=== PATIENT | female | born 1980 | race Caucasian/White ===

== ENCOUNTER 2024-07-10 17:18 | Inpatient (IN) | payer MEDICAID ==
[~2024-07-10] VITALS: Ht 160 cm; Wt 133.7 kg
--- NOTE | 2024-07-10 17:55 | ED.PDOC ---
GI ASSESSMENT HPI Comments 43 y.o female with PMH of HTN, presents to the ED for a chief complaint of right upper quadrant pain associated with nausea that started 6 days ago. Patient reports pain is constant, non radiating and rating a 7/10 on the pain scale. Patient denies any vomiting, diarrhea, fever, chills, or urinary symptoms. Chief Complaint: Abdominal Pain Time Seen by MD: 17:30 Reviewed Notes: Nurses Notes, Medications, Allergies Allergies: Coded Allergies: No Known Drug Allergy (Verified Allergy, Unknown, 07/10/24) Information Source: Patient Mode of Arrival: Ambulatory Timing: Days (6) Duration: Since onset Quality: Sharp Vomitus: None Stool: Normal Severity: Moderate Recent: None Recent Hx of: None Pain Location: RUQ Modifying Factors: Nothing Associated sign and symptoms: Nausea, Abdominal Pain Past Medical History PAST MEDICAL HISTORY: HTN Surgical History: Tubal Ligation Surgical History (Other): left hand DISTRIBUTION LEAD History: No Pertinent DISTRIBUTION LEAD History Family History Family History: Reviewed,noncontributory to illness Social History Smoker: Non-Smoker Alcohol: Occasionally Drugs: Marijuana Constitutional: denies: chills, diaphoresis, fatigue, fever, malaise, sweats, weakness, others EENTM: denies: blurred vision, double vision, ear bleeding, ear discharge, ear drainage, ear pain, ear ringing, eye pain, eye redness, hearing loss, mouth pain, mouth swelling, nasal discharge, nose bleeding, nose congestion, nose pain, photophobia, tearing, throat pain, throat swelling, voice changes, others Respiratory: denies: cough, hemoptysis, orthopnea, SOB at rest, shortness of breath, SOB with excertion, stridor, wheezing, others Cardiovascular: denies: chest pain, dizzy spells, diaphoresis, Dyspnea on exertion, edema, irregular heart beat, left arm pain, lightheadedness, palpitations, PND, syncope, others Gastrointestinal: reports: abdominal pain, nausea; denies: abdomen distended, blood streaked bowels, constipated, diarrhea, dysphagia, difficulty swallowing, hematemesis, melena, poor appetite, poor fluid intake, rectal bleeding, rectal pain, vomiting, others Genitourinary: denies: abnormal vagina bleeding, burning, dyspareunia, dysuria, flank pain, frequency, hematuria, incontinence, pain, , vagina discharge, urgency, others Neurological: denies: dizziness, fainting, headache, left sided numbness, left sided weakness, numbness, paresthesia, pre-existing deficit, right sided numbness, right sided weakness, seizure, speech problems, tingling, tremors, weakness, others Musculoskeletal: denies: back pain, gout, joint pain, joint swelling, muscle pain, muscle stiffness, neck pain, others Integumetry: denies: bruises, change in color, change in hair/nails, dryness, laceration, lesions, lumps, rash, wounds, others Allergic/Immunocompromised: denies: Difficulty Healing, Frequent Infections, Hives, Itching, others Hematologic/Lymphatic: denies: anemia, blood clots, easy bleeding, easy bruising, swollen glands, others Endocrine: denies: excessive hunger, excessive sweating, excessive thirst, excessive urination, flushing, intolerance to cold, intolerance to heat, unexplained weight gain, unexplained weight loss, others Psychiatric: denies: anxiety, bipolar disorder, depression, hopeless, panic disorder, schizophrenia, sleepless, suicidal, others All Other Systems: Reviewed and Negative Physical Exam General Appearance: Moderate Distress HEENT: Normal ENT Inspection, Pharynx Normal, TMs Normal Neck: Full Range of Motion, Non-Tender, Normal, Normal Inspection Respiratory: Chest Non-Tender, Lungs Clear, No Accessory Muscle Use, No Respiratory Distress, Normal Breath Sounds Cardiovascular: No Edema, No JVD, No Murmur, No Gallop, Normal Peripheral Pulses, Regular Rate/Rhythm Breast Exam: Deferred Gastrointestinal: No Organomegaly, No Pulsatile Mass, Normal Bowel Sounds, RUQ, Soft, Tenderness Genitalia: Deferred Pelvic: Deferred Rectal: Deferred Extremities: No calf tenderness, Normal capillary refill, Normal inspection, Normal range of motion, Non-tender, No pedal edema Musculoskeletal : Apperance: Normal 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 Was a procedure done?: No GI differential Dx Differential Diagnosis: Esophagitis, Gastroenteritis, Dehydration, Electrolyte Imbalance, , Bacterial, Viral X-Ray, Labs, Meds, VS Vital Signs Date Time Temp Pulse Resp B/P (MAP) Pulse Ox O2 Delivery O2 Flow Rate FiO2 07/10/24 19:54 100 18 148/94 (112) 96 07/10/24 19:53 100 18 166/91 07/10/24 19:03 97 18 134/89 07/10/24 18:47 98.7 97 18 134/89 (104) 97 98.7 07/10/24 18:47 97 18 97 Room Air 07/10/24 18:00 134/89 07/10/24 17:34 95.0 20 20 164/100 (121) 100 Lab Test 07/10/24 21:15 07/10/24 18:46 07/10/24 18:29 Range/Units Lactic Acid Level Pending Urine Color Yellow Yellow Urine Clarity Clear Clear Urine pH 6.0 5.0-9.0 Urine Specific [place] 1.026 1.001-1.035 Urine Protein Trace H Negative Urine Ketones Negative Negative Urine Blood Negative Negative /uL Urine Nitrite Negative Negative Urine Bilirubin Negative Negative Urine Urobilinogen 2 H Negative mg/dL Urine Leukocyte Esterase Negative Negative /uL Urine RBC 2 0 - 4 /hpf Urine WBC 1 0 - 5 /hpf Urine Squamous Epithelial Cells Few <5 /hpf Urine Bacteria None seen None Seen /hpf Urine Mucus Few None Seen Urine Glucose Normal Normal mg/dL Urine Opiates Screen Pos NEGATIVE Urine Fentanyl Screen Neg NEGATIVE Urine Barbiturates Screen Neg NEGATIVE Urine Phencyclidine Screen Neg NEGATIVE Urine Amphetamines Screen Neg NEGATIVE Urine Benzodiazepines Screen Neg NEGATIVE Urine Cocaine Screen Neg NEGATIVE Urine Cannabinoids Screen Pos NEGATIVE White Blood Count 11.9 H 4.4-10.8 10^3/uL Red Blood Count 5.09 4.0-5.20 10^6/uL Hemoglobin 14.4 12.2-16.2 g/dL Hematocrit 43.7 36.0-46.0 % Mean Corpuscular Volume 85.9 80.0-100.0 fL Mean Corpuscular Hemoglobin 28.2 28.0-32.0 pg Mean Corpuscular Hemoglobin Concent 32.9 32.0-36.0 g/dL Red Cell Distribution Width 15.9 H 11.8-14.3 % Platelet Count 463 H 140-450 10^3/uL Mean Platelet Volume 7.6 6.9-10.8 fL Neutrophils (%) (Auto) 64.1 37.0-80.0 % Lymphocytes (%) (Auto) 26.3 10.0-50.0 % Monocytes (%) (Auto) 4.8 0.0-12.0 % Eosinophils (%) (Auto) 4.0 0.0-7.0 % Basophils (%) (Auto) 0.8 0.0-2.0 % Neutrophils # (Auto) 7.6 1.6-8.6 10 ^3/uL Lymphocytes # (Auto) 3.1 0.4-5.4 10 ^3/uL Monocytes # (Auto) 0.6 0-1.3 10 ^3/uL Eosinophils # (Auto) 0.5 0-0.8 10 ^3/uL Basophils # (Auto) 0.1 0-0.2 10 ^3/uL Nucleated Red Blood Cells 0.1 % Sodium Level 141 136-145 mmol/L Potassium Level 4.5 3.5-5.1 mmol/L Chloride Level 107 98-107 mmol/L Carbon Dioxide Level 20-31 mmol/L Anion Gap 7 5-15 Blood Urea Nitrogen 8 L 9-23 mg/dL Creatinine 0.87 0.550-1.02 mg/dL Glomerular Filtration Rate Calc 84 >90 mL/min BUN/Creatinine Ratio 9.2 L 10.0-20.0 Serum Glucose 89 74-106 mg/dL Calcium Level 10.1 8.7-10.4 mg/dL Total Bilirubin 0.5 0.2-1.0 mg/dL Aspartate Amino Transferase (AST) 15 13-40 U/L Alanine Aminotransferase (ALT) 11 7-40 U/L Alkaline Phosphatase 80 46-116 U/L Total Protein 7.8 5.7-8.2 g/dL Albumin 5.0 H 3.2-4.8 g/dL Lipase 35 12-53 U/L Beta HCG, Quantitative 0.3 L 1.5-4.2 mIU/mL Current Medications Medications (Trade) Dose Ordered Sig/Rosaura Route Start Time Stop Time Status Last Admin Ondansetron HCl (Zofran) 4 mg ONCE ONCE IV 07/10/24 17:45 07/10/24 17:46 DC 07/10/24 19:03 Morphine Sulfate 4 mg ONCE ONCE IV 07/10/24 17:45 07/10/24 17:46 DC 07/10/24 19:03 Sodium Chloride 500 ml @ 500 mls/hr Q1H ONCE IVB 07/10/24 17:45 07/10/24 18:44 DC 07/10/24 18:59 CT scan of the abdomen and pelvis shows no sign of any significant abnormalities except for some liver inflammation The ultrasound of the gallbladder is negative The patient has an elevated white blood cell count of 11.9 The rest of the CBC and chemistry panel are within normal limits The patient's pain is persistent so after the morphine and Zofran the patient was now being given Dilaudid. The the urine tox is positive for marijuana The urine test is negative At this time, we did recommend admission for the patient We spoke with Lacy who is the hospitalist on-call and the patient is to be admitted The patient will be dispositioned by her at this time Images Reviewed?: Images reviewed and evaluated by me Time of 1ST Reevaluation: 17:56 Reevaluation 1ST: Unchanged Patient Education/Counseling: Diagnosis, Treatment, Prognosis Family Education/Counseling: No Family Present Departure 1 Departure Time of Disposition: 21:33 Impression: Primary Impression: Intractable abdominal pain Disposition: ADMITTED INPATIENT Admit to: Med Surg Condition: Fair Critical Care Note Critical Care Time?: No Stability Stability form required: Yes Unstable for transfer: ED Physician Assesment (Clinical assesment) Heart Score Heart Score: Heart Score Response (Comments) Value History N/A 0 EKG N/A 0 Age N/A 0 Risk Factors N/A 0 Troponin N/A 0 Total 0 I personally scribed for TI WRIGHT MD ([employer]) on 07/10/24 at 17:55. Electronically submitted by Dianne Moreno ([employer]). I personally scribed for TI WRIGHT MD ([employer]) on 07/10/24 at 17:56. Electronically submitted by Dianne Moreno ([employer]). TI WRIGHT MD Jul 10, 2024 17:55
[2024-07-10] MEDS: cloNIDine HCL 0.1 MG TAB PO ONE (18:00)
--- NOTE | 2024-07-10 18:29 | DVH ---
Procedure: US GALLBLADDER Study Date and Requested Time: 07/10/2024 05:42 PM History: pain Comparison: None Technique: Multiple high resolution bunch-scale images obtained of the right upper quadrant of the abd omen with color Doppler for evaluation of blood flow and vascularity as indicated. Findings: Liver normal in size, measuring 16.3 cm in length, with increased echogenicity and normal contours. N o evidence of focal hepatic lesions, intrahepatic or extrahepatic ductal dilatation. Common bile duct measures 0.4 cm in diameter. Gallbladder unremarkable with no evidence of abnormal wall thickening, gallstones, biliary sludge, or pericholecystic fluid. Negative sonographic Quintana's sign. Pancreas only partially visualized due to overlying bowel gas . Right kidney measures 10.6 cm in length, with normal contours, echotexture, and cortical thickness. N o evidence of hydronephrosis, calculi, cystic or solid renal lesions. Partially visualized inferior vena cava unremarkable. Impression: Increased hepatic echogenicity which may be from hepatic disease/hepatic steatosis..
[2024-07-10 18:52] LABS: Basophils # (auto) 0.1 10 ^3/uL (0-0.2); Basophils % (auto) 0.8 % (0.0-2.0); Eosinophils # (auto) 0.5 10 ^3/uL (0-0.8); Hematocrit 43.7 % (36.0-46.0); Hemoglobin 14.4 g/dL (12.2-16.2); Lymphocytes # (auto) 3.1 10 ^3/uL (0.4-5.4); Lymphocytes % (auto) 26.3 % (10.0-50.0); Mean Corpuscular Hemoglobin 28.2 pg (28.0-32.0); Mean Corpuscular Hgb Conc. 32.9 g/dL (32.0-36.0); Mean Corpuscular Volume 85.9 fL (80.0-100.0); Monocytes # (auto) 0.6 10 ^3/uL (0-1.3); Monocytes % (auto) 4.8 % (0.0-12.0); Neutrophils # (auto) 7.6 10 ^3/uL (1.6-8.6); Neutrophils % (auto) 64.1 % (37.0-80.0); Nucleated Red Blood Cells % 0.1 %; Platelet Count (auto) 463 10^3/uL (140-450); Red Blood Cells 5.09 10^6/uL (4.0-5.20); Red Cell Distribution Width 15.9 % (11.8-14.3); White Blood Cell 11.9 10^3/uL (4.4-10.8)
[2024-07-10] MEDS: SODIUM CHLORIDE 0.9% 500 ML IVB ONE (18:59)
[2024-07-10] MEDS: MORPHINE SULFATE 4 MG/ML SYR/VIAL IV ONE (19:03)
[2024-07-10] MEDS: ONDANSETRON HCL 4 MG/2 ML VIAL IV ONE ×2 (19:03→21:31)
[2024-07-10 19:07] LABS: Alanine Aminotransferase 11 U/L (7-40); Alkaline Phosphatase 80 U/L (46-116); Aspartate Aminotransferase 15 U/L (13-40); BUN/Creatinine Ratio 9.2 (10.0-20.0); Blood Urea Nitrogen 8 mg/dL (9-23); Calcium 10.1 mg/dL (8.7-10.4); Chloride 107 mmol/L (98-107); Glucose 89 mg/dL (74-106); Lipase 35 U/L (12-53); Potassium 4.5 mmol/L (3.5-5.1); Sodium 141 mmol/L (136-145)
[2024-07-10 19:08] LABS: Bilirubin, Total 0.5 mg/dL (0.2-1.0); Total Protein 7.8 g/dL (5.7-8.2)
[2024-07-10 19:14] LABS: Urine Bacteria None Seen /hpf (None Seen)
[2024-07-10 19:22] LABS: Anion Gap 7 (5-15)
[2024-07-10 19:52] LABS: Urine Blood Negative /uL (Negative); Urine Clarity Clear (Clear); Urine Color Yellow (Yellow); Urine Mucus FEW (None Seen); Urine Protein, UAD TRACE (Negative); Urine Specific Gravity 1.026 (1.001-1.035); Urine Urobilinogen 2 mg/dL (Negative); Urine WBC 1 /hpf (0 - 5)
--- NOTE | 2024-07-10 20:06 | DVH ---
CT CT AB PEL WO CON-NO ORAL OR IV INDICATION: : 43 old Female pain EXAM DATE: 07/10/2024 07:33 PM COMPARISON: None RADIATION DOSE: CTDIvol: 26 mGy, DLP: 1350 mGy*cm PROCEDURE: Helical CT images were obtained of the abdomen and pelvis without IV contrast Sagittal an d coronal reconstructions are provided. ORAL CONTRAST: None. ADDITIONAL IMAGES / REFORMATS: None All CT scans at this medical facility are performed using dose modulation techniques as appropriate t o a performed exam including the following: Automated exposure control was utilized; adjustment of th e MA and/or KV according to patient size; and use of iterative reconstruction technique. FINDINGS: LUNG BASE: Normal. LIVER: Mildly low in attenuation. GALLBLADDER AND BILIARY TREE: No calcified gallstones. Normal caliber wall. No intra- or extrahepatic biliary ductal dilation. PANCREAS: Normal. SPLEEN: Normal. BOWEL: Mild colonic diverticulosis. Normal appendix. ADRENALS: Normal. KIDNEYS AND URETER: Punctate nonobstructive left kidney stone. BLADDER: Normal. REPRODUCTIVE ORGANS: 2.4 cm right ovarian cyst. LYMPH NODES:No lymphadenopathy. PERITONEUM: No ascites or free air. No other fluid collection. VESSELS: Scattered atherosclerotic calcifications are noted. RETROPERITONEUM: Normal. ABDOMINAL WALL: Normal. BONES: Scattered osseous degenerative changes are noted. Mild anterolisthesis of L5-S2 with bilateral pars defects. IMPRESSION: No acute intraabdominal abnormality. Mild colonic diverticulosis. Normal appendix. Punctate nonobstructive left kidney stone. Mild anterolisthesis of L5-S2 with bilateral pars defects. Mild hepatic steatosis.
[2024-07-10 20:10] VITALS: PULSE 94; RESP 15; O2SAT 99
[2024-07-10 21:22] LABS: Amphetamine Screen, Urine Neg (NEGATIVE); Benzodiazephine Screen, Urine Neg (NEGATIVE)
[2024-07-10 21:23] LABS: Barbiturate Scree,Urine Neg (NEGATIVE); Cannabinoid Screen, Urine Pos (NEGATIVE); Cocaine Screen, Urine Neg (NEGATIVE); Opiate Scree,Urine Pos (NEGATIVE); Phencyclidine Screen, Urine Neg (NEGATIVE)
[2024-07-10] MEDS: HYDROmorphone HCL 2 MG/ML VL/or syr IV ONE (21:31)
[2024-07-10] MEDS ORDERED: ACETAMINOPHEN 325 MG TAB PO PRN (21:45)
[2024-07-11] VITALS (8 sets, daily range): BP systolic 114–159; BP diastolic 64–97; PULSE 81–96; RESP 18–20; TEMP 97.8–98.3; O2SAT 95–100
--- NOTE | 2024-07-11 00:20 | DVHHP2 ---
Admitting Diagnosis: Intractable Abdominal pain History of Present Illness History Source: Patient Exam Limitations: No limitations HPI Mrs. Lizbeth Dickinson is a 43 y.o female with a history of hypertension, and chronic back pain patient presents with a chief complaint of right upper quadrant pain associated with nausea that started 6 days ago. Patient denies chest pain, fevers, chills, diarrhea, constipation, dysuria, hematuria. Home Meds Reported Medications Amitriptyline HCl (Amitriptyline Hydrochlori) 50 Mg Tab, 1 TAB PO 07/11/24 Tizanidine Hydrochloride (Tizanidine Hcl) 4 Mg Tab, 1 TAB PO Q8H 07/11/24 Atenolol (Atenolol) 50 Mg Tab, 1 TAB PO DAILY 07/11/24 Hydrocodone-Acetaminophen (Hydrocodone/Acetaminophen 7.5-325 mg) 1 Tab Tab 07/11/24 Gabapentin (Gabapentin) 400 Mg Cap, PO 07/11/24 Past Medical History Cardiac: HTN Pulmonary: No pertinent Hx Central Nervous System: No pertinent Hx GI: No pertinent Hx Hemotology/Oncology: No pertinent Hx Hepatobiliary: No pertinent Hx Psychiatric: No pertinent Hx Musculoskeletal: No pertinent Hx Rheumotologic: No pertinent Hx Infectious Disease: No peritnent Hx ENT: No pertinent Hx Renal/: No pertinent Hx Endocrine: No pertinent Hx Dermatology: No pertinent Hx Smoker: No Hx (Negative) Alocohol: None Drugs: None Lives with: With family Domestic Violence: Neg Review of Systems Constitutional: No symptom reported Ears, Nose, & Throat: No symptom reported Eyes: No symptom reported Pulmonary/Respiratory: No symptom reported Cardiovascular: No symptom reported Gastrointestinal: Abdominal Pain (right upper quadrant) Genitourinary: No symptom reported Musculoskeletal: No symptom reported Skin: No symptom reported Psychiatric: No symptom reported Endocrine: No symptom reported Hemotologic/Lymphatic: No symptom reported H&P Exam Vital Signs Vital Signs Date Time Temp Pulse Resp B/P (MAP) Pulse Ox O2 Delivery O2 Flow Rate FiO2 07/10/24 23:00 96 12 155/93 (113) 99 07/10/24 20:10 Room Air* 0 21 07/10/24 18:47 98.7 98.7 General Appeara: Well developed, Well nourished, Normal Appearance Head Exam: Normal inspection Neck Exam: Normal inspection, Non-tender, Normal alignment Eye Exam: bilateral eye Normal inspection, bilateral eye PERRL, bilateral eye EOMI Ear Exam: bilateral ear Auricle normal Nasal Exam: Normal inspection Mouth: Normal Inspection Pulmonary/Respiratory: Normal inspection, Normal breath sounds, Chest non- tender, Lungs clear Cardiovascular/Chest: Normal inspection, Regular rate, Normal Rhythm Peripheral Pulses: 2+ dorsalis pedis (R), 2+ dorsalis pedis (L), 2+ Radial (R), 2+ Radial (L) Abdominal Exam: Normal bowel sounds, Soft, No tenderness Abdominal Pain Onset Location: RUQ Rectal Exam: Deferred 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 hearing, Normal speech, PERRL Neuro/Mental St: Alert, Oriented Appearance: Appropriate appearance, Appropriate insight Eye contact/ Speech: Cooperative, Good eye contact, Normal speech Thoughts/Psych: Normal thought pattern Skin Exam: Normal inspection, Normal color, Warm/dry Labs/Xrays Labs Test 07/10/24 21:15 07/10/24 18:46 07/10/24 18:29 Range/Units Lactic Acid Level 1.2 0.4-2.0 mmol/L Urine Color Yellow Yellow Urine Clarity Clear Clear Urine pH 6.0 5.0-9.0 Urine Specific [place] 1.026 1.001-1.035 Urine Protein Trace H Negative Urine Ketones Negative Negative Urine Blood Negative Negative /uL Urine Nitrite Negative Negative Urine Bilirubin Negative Negative Urine Urobilinogen 2 H Negative mg/dL Urine Leukocyte Esterase Negative Negative /uL Urine RBC 2 0 - 4 /hpf Urine WBC 1 0 - 5 /hpf Urine Squamous Epithelial Cells Few <5 /hpf Urine Bacteria None seen None Seen /hpf Urine Mucus Few None Seen Urine Glucose Normal Normal mg/dL Urine Opiates Screen Pos NEGATIVE Urine Fentanyl Screen Neg NEGATIVE Urine Barbiturates Screen Neg NEGATIVE Urine Phencyclidine Screen Neg NEGATIVE Urine Amphetamines Screen Neg NEGATIVE Urine Benzodiazepines Screen Neg NEGATIVE Urine Cocaine Screen Neg NEGATIVE Urine Cannabinoids Screen Pos NEGATIVE White Blood Count 11.9 H 4.4-10.8 10^3/uL Red Blood Count 5.09 4.0-5.20 10^6/uL Hemoglobin 14.4 12.2-16.2 g/dL Hematocrit 43.7 36.0-46.0 % Mean Corpuscular Volume 85.9 80.0-100.0 fL Mean Corpuscular Hemoglobin 28.2 28.0-32.0 pg Mean Corpuscular Hemoglobin Concent 32.9 32.0-36.0 g/dL Red Cell Distribution Width 15.9 H 11.8-14.3 % Platelet Count 463 H 140-450 10^3/uL Mean Platelet Volume 7.6 6.9-10.8 fL Neutrophils (%) (Auto) 64.1 37.0-80.0 % Lymphocytes (%) (Auto) 26.3 10.0-50.0 % Monocytes (%) (Auto) 4.8 0.0-12.0 % Eosinophils (%) (Auto) 4.0 0.0-7.0 % Basophils (%) (Auto) 0.8 0.0-2.0 % Neutrophils # (Auto) 7.6 1.6-8.6 10 ^3/uL Lymphocytes # (Auto) 3.1 0.4-5.4 10 ^3/uL Monocytes # (Auto) 0.6 0-1.3 10 ^3/uL Eosinophils # (Auto) 0.5 0-0.8 10 ^3/uL Basophils # (Auto) 0.1 0-0.2 10 ^3/uL Nucleated Red Blood Cells 0.1 % Sodium Level 141 136-145 mmol/L Potassium Level 4.5 3.5-5.1 mmol/L Chloride Level 107 98-107 mmol/L Carbon Dioxide Level 20-31 mmol/L Anion Gap 7 5-15 Blood Urea Nitrogen 8 L 9-23 mg/dL Creatinine 0.87 0.550-1.02 mg/dL Glomerular Filtration Rate Calc 84 >90 mL/min BUN/Creatinine Ratio 9.2 L 10.0-20.0 Serum Glucose 89 74-106 mg/dL Calcium Level 10.1 8.7-10.4 mg/dL Total Bilirubin 0.5 0.2-1.0 mg/dL Aspartate Amino Transferase (AST) 15 13-40 U/L Alanine Aminotransferase (ALT) 11 7-40 U/L Alkaline Phosphatase 80 46-116 U/L Total Protein 7.8 5.7-8.2 g/dL Albumin 5.0 H 3.2-4.8 g/dL Lipase 35 12-53 U/L Beta HCG, Quantitative 0.3 L 1.5-4.2 mIU/mL Assessment/Plan Problem List: (1) Intractable abdominal pain Plan 43 yo female with known history of hypertension, chronic back pain presents to the hospital with abdominal pain. 1. Intractable abdominal pain Admit medical surgical GI consultation IV fluids NS Full liquid diet GI ppx Protonix Analgesic and antiemetic as needed Discussed all above with patient who verbalizes agreement and understanding of care plan. All questions were answered. Discussed assessment and care plan with supervising MD. Plan discussed with: Patient, Other Code Visit Code Visit Total Time (mins): 45 Additional Comments Additional Comments Additional Comments Seen and evaluated by me. I agree with the assessment and plan as outlined by my nurse practitioner. CHRISTINA FRIEDMAN Jul 11, 2024 00:20 MARY CORTEZ MD Jul 16, 2024 15:58
[2024-07-11] MEDS ORDERED: hydrALAZINE HCL 20 MG/ML VL IV PRN (00:30)
[2024-07-11] MEDS: HYDROcodone-ACET 5/325MG TAB PO PRN ×2 (00:37→21:53)
[2024-07-11] MEDS ORDERED: ATEN50TA PO (01:45)
[2024-07-11] MEDS ORDERED: TIZA-142 PO (01:45)
[2024-07-11] MEDS ORDERED: GABA-1251 PO (01:45)
[2024-07-11] MEDS ORDERED: AMIT-256 PO (01:45)
[2024-07-11] MEDS ORDERED: HYDR-4069 (01:45)
[2024-07-11] MEDS: MORPHINE SULFATE INJ 2 MG/ml SYRG IV PRN ×2 (02:26→20:15)
[2024-07-11] MEDS: ONDANSETRON HCL 4 MG/2 ML VIAL IV PRN ×2 (02:38→20:15)
[2024-07-11 06:22] LABS: Basophils # (auto) 0.1 10 ^3/uL (0-0.2); Basophils % (auto) 0.6 % (0.0-2.0); Eosinophils # (auto) 0.4 10 ^3/uL (0-0.8); Eosinophils % (auto) 3.8 % (0.0-7.0); Hematocrit 39.4 % (36.0-46.0); Hemoglobin 12.8 g/dL (12.2-16.2); Lymphocytes # (auto) 3.2 10 ^3/uL (0.4-5.4); Lymphocytes % (auto) 32.7 % (10.0-50.0); Mean Corpuscular Hemoglobin 28.1 pg (28.0-32.0); Mean Corpuscular Hgb Conc. 32.4 g/dL (32.0-36.0); Mean Corpuscular Volume 86.7 fL (80.0-100.0); Monocytes # (auto) 0.5 10 ^3/uL (0-1.3); Monocytes % (auto) 4.7 % (0.0-12.0); Neutrophils # (auto) 5.6 10 ^3/uL (1.6-8.6); Neutrophils % (auto) 58.2 % (37.0-80.0); Nucleated Red Blood Cells % 0.1 %; Platelet Count (auto) 379 10^3/uL (140-450); Red Blood Cells 4.55 10^6/uL (4.0-5.20); Red Cell Distribution Width 16.2 % (11.8-14.3); White Blood Cell 9.7 10^3/uL (4.4-10.8)
[2024-07-11 06:32] LABS: Albumin 4.2 g/dL (3.2-4.8); Alkaline Phosphatase 64 U/L (46-116); Anion Gap 6 (5-15); Aspartate Aminotransferase 16 U/L (13-40); BUN/Creatinine Ratio 10.8 (10.0-20.0); Blood Urea Nitrogen 8 mg/dL (9-23); Calcium 9.3 mg/dL (8.7-10.4); Carbon Dioxide 24 mmol/L (20-31); Chloride 108 mmol/L (98-107); Glucose 95 mg/dL (74-106); Potassium 4.1 mmol/L (3.5-5.1); Sodium 138 mmol/L (136-145)
[2024-07-11 06:33] LABS: Bilirubin, Total 0.8 mg/dL (0.2-1.0); Total Protein 6.5 g/dL (5.7-8.2)
[2024-07-11 06:34] LABS: Alanine Aminotransferase 9 U/L (7-40)
[2024-07-11] MEDS: GABAPENTIN 400 MG CAP PO SCH (08:26)
[2024-07-11] MEDS: ATENOLOL 25 MG TAB PO SCH ×2 (08:26→21:54)
[2024-07-11] MEDS: PANTOPRAZOLE 40 MG/10 ML VIAL INJ IV SCH (08:27)
--- NOTE | 2024-07-11 16:44 | DVHPN2 ---
Subjective Assuming the care of the patient from today onwards who was under the care of the hospitalist team. Patient is still complaining of abdominal cramping in the right side. Patient has stated that she takes tizanidine at home and this hospital does not have it she is requesting another muscle relaxant. Reviewed: Care Plan Changes from previous H/P or p: No Changes Objective Vitals Vital Signs Date Time Temp Pulse Resp B/P (MAP) Pulse Ox O2 Delivery O2 Flow Rate FiO2 07/11/24 15:19 87 20 153/85 07/11/24 13:00 98.0 97 98.0 07/11/24 00:24 Room Air* 0 21 Intake/Output Intake and Output 07/11/24 07:00 Intake Total 900 ml Balance 900 ml Intake Oral 400 ml IV Total 500 ml # Voids 1 Exam HEENT pupils are reactive Neck is supple CV is S1-S2 regular rate and rhythm Respiratory diminished breath sounds bases GI positive bowel sounds soft nondistended nontender no guarding no rigidity Extremity no edema 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 Medications Current Medications Medications Dose Ordered Sig/Rosaura Route Start Time Stop Time Status Last Admin Dose Admin Ondansetron HCl 4 mg Q6HPRN PRN IV 07/10/24 21:45 07/11/24 15:17 4 MG Acetaminophen/ Hydrocodone Bitart 1 tab Q6HPRN PRN PO 07/10/24 21:45 07/11/24 00:37 1 TAB Acetaminophen 650 mg Q6HPRN PRN PO 07/10/24 21:45 Hydralazine HCl 10 mg Q6HP PRN IV 07/11/24 00:30 Melatonin 5 mg ONCE@2200 PRN PO 07/11/24 02:15 Morphine Sulfate 2 mg Q6HPRN PRN IV 07/11/24 02:15 07/11/24 15:19 2 MG Amitriptyline HCl 50 mg HS PO 07/11/24 22:00 Pantoprazole Sodium 40 mg BID@0600,1700 PO 07/11/24 17:00 Atenolol 50 mg HS PO 07/11/24 22:00 Gabapentin 800 mg HS PO 07/12/24 22:00 Laboratory Results Laboratory Tests 07/11/24 05:08 Chemistry Test 07/10/24 18:29 07/11/24 05:08 Albumin 5.0 g/dL (3.2-4.8) H 4.2 g/dL (3.2-4.8) Calcium Level 10.1 mg/dL (8.7-10.4) 9.3 mg/dL (8.7-10.4) Total Protein 7.8 g/dL (5.7-8.2) 6.5 g/dL (5.7-8.2) Lipid panel Test 07/10/24 18:29 Lipase 35 U/L (12-53) LFT Test 07/10/24 18:29 07/11/24 05:08 Alanine Aminotransferase (ALT) 11 U/L (7-40) 9 U/L (7-40) Alkaline Phosphatase 80 U/L (46-116) 64 U/L (46-116) Aspartate Amino Transferase (AST) 15 U/L (13-40) 16 U/L (13-40) Total Bilirubin 0.5 mg/dL (0.2-1.0) 0.8 mg/dL (0.2-1.0) Urinalysis Test 07/10/24 18:46 Urine Color Yellow (Yellow) Urine Clarity Clear (Clear) Urine pH 6.0 (5.0-9.0) Urine Specific [place] 1.026 (1.001-1.035) Urine Protein Trace (Negative) H Urine Ketones Negative (Negative) Urine Blood Negative /uL (Negative) Urine Nitrite Negative (Negative) Urine Bilirubin Negative (Negative) Urine Urobilinogen 2 mg/dL (Negative) H Urine Leukocyte Esterase Negative /uL (Negative) Urine RBC 2 /hpf (0 - 4) Urine WBC 1 /hpf (0 - 5) Urine Squamous Epithelial Cells Few /hpf (<5) Urine Bacteria None seen /hpf (None Seen) Urine Mucus Few (None Seen) Urine Glucose Normal mg/dL (Normal) Assessment/Plan Assessment/Plan 43-year-old female with a known history of chronic pain syndrome , chronic back pain initially admitted to the hospital with the abdominal pain found to have 1. Abdominal pain unspecified currently CT abdomen and pelvis does not show any acute pathology 2. Chronic back pain 3. Chronic pain syndrome 4. Hepatic steatosis -add Flexeril as patient stated that they do not have her tizanidine here. Continue pain meds as needed -discharge plan Plan discussed with: Patient My Orders Orders - MARY CORTEZ MD Procedure Category Date Status Time Atenolol Tablet PHA 07/11/24 In Process (Tenormin Tablet) 22:00 Gabapentin Capsule PHA 07/11/24 In Process (Neurontin Capsule) 22:00 Gabapentin Capsule PHA 07/12/24 In Process (Neurontin Capsule) 22:00 Cyclobenzaprine PHA 07/11/24 Verified Tablet (Flexeril 16:45 Date of Service: Jul 11, 2024 Billing Provider: MARY CORTEZ MD Common Visit Codes: [id number] INP/OBS CARE(HIGH) MARY CORTEZ MD Jul 11, 2024 16:44
[2024-07-11] MEDS: PANTOPRAZOLE 40 MG TAB PO SCH (17:51)
--- NOTE | 2024-07-11 21:23 | DVHINCON2 ---
Date of service: Jul 11, 2024 Referring Physician Lacy Martinez Reason for Consultation Right upper quadrant abdominal pain History of Present Illness Mrs. Lizbeth Dickinson is a 43 y.o female with a history of hypertension, and chronic back pain patient presents with a chief complaint of right upper quadrant pain associated with nausea that started 6 days ago. Patient denies chest pain, fevers, chills, diarrhea, constipation, dysuria, hematuria. Patient stated she had trouble lying in the bed and moving in the bed because of her back pain. A toxicology screen was positive for marijuana use Past Medical History Hypertension Diabetes Anxiety depression Degenerative disease of the back Family History: Patient reports no known family medical history. Allergies: Coded Allergies: No Known Drug Allergy (Verified Allergy, Unknown, 07/10/24) Home Meds Reported Medications Amitriptyline HCl (Amitriptyline Hydrochlori) 50 Mg Tab, 1 TAB PO 07/11/24 Tizanidine Hydrochloride (Tizanidine Hcl) 4 Mg Tab, 1 TAB PO Q8H 07/11/24 Atenolol (Atenolol) 50 Mg Tab, 1 TAB PO DAILY 07/11/24 Hydrocodone-Acetaminophen (Hydrocodone/Acetaminophen 7.5-325 mg) 1 Tab Tab 07/11/24 Gabapentin (Gabapentin) 400 Mg Cap, PO 07/11/24 Current Medications Current Medications Medications (Trade) Dose Ordered Sig/Rosaura Route PRN Reason Start Time Stop Time Status Last Admin Ondansetron HCl (Zofran) 4 mg Q6HPRN PRN IV NAUSEA / VOMITING 07/10/24 21:45 07/11/24 19:45 DC 07/11/24 15:17 Acetaminophen/ Hydrocodone Bitart ([place] 5/325MG Tab) 1 tab Q6HPRN PRN PO PAIN SCALE 1 THRU 6 07/10/24 21:45 07/11/24 19:30 DC 07/11/24 17:51 Acetaminophen (Tylenol Tablet) 650 mg Q6HPRN PRN PO TEMP GREATER THAN 100.4 07/10/24 21:45 Pantoprazole Sodium (Protonix) 40 mg DAILY IV 07/11/24 10:00 07/11/24 11:51 DC 07/11/24 08:27 Hydralazine HCl (Apresoline Injection) 10 mg Q6HP PRN IV SBP>160 07/11/24 00:30 Melatonin (Melatonin) 5 mg ONCE@2200 PRN PO FOR INSOMNIA 07/11/24 02:15 Morphine Sulfate 2 mg Q6HPRN PRN IV SEVERE PAIN (7-10 PAIN SCALE) 07/11/24 02:15 07/11/24 19:30 DC 07/11/24 15:19 Amitriptyline HCl (Elavil Tablet) 50 mg HS PO 07/11/24 22:00 Atenolol (Tenormin Tablet) 50 mg DAILY PO 07/11/24 10:00 07/11/24 14:50 DC Gabapentin (Neurontin Capsule) 400 mg BID PO 07/11/24 10:00 07/11/24 14:50 DC 07/11/24 08:26 Pantoprazole Sodium (Protonix Tablet) 40 mg BID@0600,1700 PO 07/11/24 17:00 07/11/24 17:51 Atenolol (Tenormin Tablet) 50 mg HS PO 07/11/24 22:00 Gabapentin (Neurontin Capsule) 800 mg HS PO 07/12/24 22:00 Cyclobenzaprine HCl (Flexeril Tablet) 5 mg Q8HPRN PRN PO FOR MUSCLE SPASM 07/11/24 16:45 Acetaminophen/ Hydrocodone Bitart ([place] 5/325MG Tab) 1 tab Q4HP PRN PO PAIN SCALE 1 THRU 6 07/11/24 19:30 Morphine Sulfate 2 mg Q4HP PRN IV SEVERE PAIN (7-10 PAIN SCALE) 07/11/24 19:30 07/11/24 20:15 Ondansetron HCl (Zofran) 4 mg Q4HPRN PRN IV NAUSEA / VOMITING 07/11/24 19:45 07/11/24 20:15 Vital Signs Vital Signs Date Time Temp Pulse Resp B/P (MAP) Pulse Ox O2 Delivery O2 Flow Rate FiO2 07/11/24 20:15 104 18 176/106 07/11/24 17:00 98.1 99 98.1 07/11/24 08:00 Room Air* 0 21 Physical Exam Well-developed well-nourished lady no acute distress morbidly obese HEENT pupils are reactive Neck is supple CV is S1-S2 regular rate and rhythm Respiratory diminished breath sounds bases GI positive bowel sounds soft nondistended nontender no guarding no rigidity Extremity no edema [employer] no motor deficit Labs/Diagnostic Data Labs Test 07/11/24 05:08 07/10/24 21:15 07/10/24 18:46 07/10/24 18:29 Range/Units White Blood Count 9.7 4.4-10.8 10^3/uL Red Blood Count 4.55 4.0-5.20 10^6/uL Hemoglobin 12.8 12.2-16.2 g/dL Hematocrit 39.4 36.0-46.0 % Mean Corpuscular Volume 86.7 80.0-100.0 fL Mean Corpuscular Hemoglobin 28.1 28.0-32.0 pg Mean Corpuscular Hemoglobin Concent 32.4 32.0-36.0 g/dL Red Cell Distribution Width 16.2 H 11.8-14.3 % Platelet Count 379 140-450 10^3/uL Mean Platelet Volume 7.9 6.9-10.8 fL Neutrophils (%) (Auto) 58.2 37.0-80.0 % Lymphocytes (%) (Auto) 32.7 10.0-50.0 % Monocytes (%) (Auto) 4.7 0.0-12.0 % Eosinophils (%) (Auto) 3.8 0.0-7.0 % Basophils (%) (Auto) 0.6 0.0-2.0 % Neutrophils # (Auto) 5.6 1.6-8.6 10 ^3/uL Lymphocytes # (Auto) 3.2 0.4-5.4 10 ^3/uL Monocytes # (Auto) 0.5 0-1.3 10 ^3/uL Eosinophils # (Auto) 0.4 0-0.8 10 ^3/uL Basophils # (Auto) 0.1 0-0.2 10 ^3/uL Nucleated Red Blood Cells 0.1 % Sodium Level 138 136-145 mmol/L Potassium Level 4.1 3.5-5.1 mmol/L Chloride Level 108 H 98-107 mmol/L Carbon Dioxide Level 24 20-31 mmol/L Anion Gap 6 5-15 Blood Urea Nitrogen 8 L 9-23 mg/dL Creatinine 0.74 0.550-1.02 mg/dL Glomerular Filtration Rate Calc 102 >90 mL/min BUN/Creatinine Ratio 10.8 10.0-20.0 Serum Glucose 95 74-106 mg/dL Calcium Level 9.3 8.7-10.4 mg/dL Total Bilirubin 0.8 0.2-1.0 mg/dL Aspartate Amino Transferase (AST) 16 13-40 U/L Alanine Aminotransferase (ALT) 9 7-40 U/L Alkaline Phosphatase 64 46-116 U/L Total Protein 6.5 5.7-8.2 g/dL Albumin 4.2 3.2-4.8 g/dL Lactic Acid Level 1.2 0.4-2.0 mmol/L Urine Color Yellow Yellow Urine Clarity Clear Clear Urine pH 6.0 5.0-9.0 Urine Specific [place] 1.026 1.001-1.035 Urine Protein Trace H Negative Urine Ketones Negative Negative Urine Blood Negative Negative /uL Urine Nitrite Negative Negative Urine Bilirubin Negative Negative Urine Urobilinogen 2 H Negative mg/dL Urine Leukocyte Esterase Negative Negative /uL Urine RBC 2 0 - 4 /hpf Urine WBC 1 0 - 5 /hpf Urine Squamous Epithelial Cells Few <5 /hpf Urine Bacteria None seen None Seen /hpf Urine Mucus Few None Seen Urine Glucose Normal Normal mg/dL Urine Opiates Screen Pos NEGATIVE Urine Fentanyl Screen Neg NEGATIVE Urine Barbiturates Screen Neg NEGATIVE Urine Phencyclidine Screen Neg NEGATIVE Urine Amphetamines Screen Neg NEGATIVE Urine Benzodiazepines Screen Neg NEGATIVE Urine Cocaine Screen Neg NEGATIVE Urine Cannabinoids Screen Pos NEGATIVE Lipase 35 12-53 U/L Beta HCG, Quantitative 0.3 L 1.5-4.2 mIU/mL CT SCAN ABD PELVIS IMPRESSION: No acute intraabdominal abnormality. Mild colonic diverticulosis. Normal appendix. Punctate nonobstructive left kidney stone. Mild anterolisthesis of L5-S2 with bilateral pars defects. Mild hepatic steatosis. RUQ USG Impression: Increased hepatic echogenicity which may be from hepatic disease/hepatic steatosis.. Problems(with codes): (1) Chronic back pain (2) Morbid obesity (3) Hepatic steatosis (4) Fatty liver (5) Intractable abdominal pain Plan/Recommendation Plan I suspect her pain may be musculoskeletal in origin as the other workup appears to be negative Recommend PT requested patient to help her ambulate and get out of bed to chair Pain control Supportive care Protonix 40 mg p.o. daily Patient was given my contact information to follow up as an outpatient if she has ongoing symptoms to consider outpatient elective panendoscopy Once again thank you for allowing me to participate in the care of this patient Plan discussed with: Patient, Other (Nurse) HANNAH ACOSTA MD Jul 11, 2024 21:23
[2024-07-11] MEDS: GABAPENTIN 400 MG CAP PO ONE (21:54)
[2024-07-11] MEDS: AMITRIPTYLINE HCL 25 MG TAB PO SCH (21:55)
[2024-07-11] MEDS: CYCLOBENZAPRINE HCL 10 MG TAB PO PRN (22:44)
[2024-07-11] MEDS: MELATONIN 5 MG TAB PO PRN (22:55)
[2024-07-12] VITALS (7 sets, daily range): BP systolic 118–159; BP diastolic 59–91; PULSE 68–93; RESP 16–18; TEMP 37; O2SAT 96–100
--- NOTE | 2024-07-12 16:08 | DVHDS2 ---
Discharge Summary Date of Admission Jul 10, 2024 at 21:42 Date of Discharge: Jul 12, 2024 Labs/Diagnostic Data: Laboratory Results Test 07/11/24 05:08 07/10/24 21:15 07/10/24 18:46 07/10/24 18:29 White Blood Count 9.7 10^3/uL (4.4-10.8) Red Blood Count 4.55 10^6/uL (4.0-5.20) Hemoglobin 12.8 g/dL (12.2-16.2) Hematocrit 39.4 % (36.0-46.0) Mean Corpuscular Volume 86.7 fL (80.0-100.0) Mean Corpuscular Hemoglobin 28.1 pg (28.0-32.0) Mean Corpuscular Hemoglobin Concent 32.4 g/dL (32.0-36.0) Red Cell Distribution Width 16.2 % (11.8-14.3) Platelet Count 379 10^3/uL (140-450) Mean Platelet Volume 7.9 fL (6.9-10.8) Neutrophils (%) (Auto) 58.2 % (37.0-80.0) Lymphocytes (%) (Auto) 32.7 % (10.0-50.0) Monocytes (%) (Auto) 4.7 % (0.0-12.0) Eosinophils (%) (Auto) 3.8 % (0.0-7.0) Basophils (%) (Auto) 0.6 % (0.0-2.0) Neutrophils # (Auto) 5.6 10 ^3/uL (1.6-8.6) Lymphocytes # (Auto) 3.2 10 ^3/uL (0.4-5.4) Monocytes # (Auto) 0.5 10 ^3/uL (0-1.3) Eosinophils # (Auto) 0.4 10 ^3/uL (0-0.8) Basophils # (Auto) 0.1 10 ^3/uL (0-0.2) Nucleated Red Blood Cells 0.1 % Sodium Level 138 mmol/L (136-145) Potassium Level 4.1 mmol/L (3.5-5.1) Chloride Level 108 mmol/L (98-107) Carbon Dioxide Level 24 mmol/L (20-31) Anion Gap 6 (5-15) Blood Urea Nitrogen 8 mg/dL (9-23) Creatinine 0.74 mg/dL (0.550-1.02) Glomerular Filtration Rate Calc 102 mL/min (>90) BUN/Creatinine Ratio 10.8 (10.0-20.0) Serum Glucose 95 mg/dL (74-106) Calcium Level 9.3 mg/dL (8.7-10.4) Total Bilirubin 0.8 mg/dL (0.2-1.0) Aspartate Amino Transferase (AST) 16 U/L (13-40) Alanine Aminotransferase (ALT) 9 U/L (7-40) Alkaline Phosphatase 64 U/L (46-116) Total Protein 6.5 g/dL (5.7-8.2) Albumin 4.2 g/dL (3.2-4.8) Lactic Acid Level 1.2 mmol/L (0.4-2.0) Urine Color Yellow (Yellow) Urine Clarity Clear (Clear) Urine pH 6.0 (5.0-9.0) Urine Specific [place] 1.026 (1.001-1.035) Urine Protein Trace (Negative) Urine Ketones Negative (Negative) Urine Blood Negative /uL (Negative) Urine Nitrite Negative (Negative) Urine Bilirubin Negative (Negative) Urine Urobilinogen 2 mg/dL (Negative) Urine Leukocyte Esterase Negative /uL (Negative) Urine RBC 2 /hpf (0 - 4) Urine WBC 1 /hpf (0 - 5) Urine Squamous Epithelial Cells Few /hpf (<5) Urine Bacteria None seen /hpf (None Seen) Urine Mucus Few (None Seen) Urine Glucose Normal mg/dL (Normal) Urine Opiates Screen Pos (NEGATIVE) Urine Fentanyl Screen Neg (NEGATIVE) Urine Barbiturates Screen Neg (NEGATIVE) Urine Phencyclidine Screen Neg (NEGATIVE) Urine Amphetamines Screen Neg (NEGATIVE) Urine Benzodiazepines Screen Neg (NEGATIVE) Urine Cocaine Screen Neg (NEGATIVE) Urine Cannabinoids Screen Pos (NEGATIVE) Lipase 35 U/L (12-53) Beta HCG, Quantitative 0.3 mIU/mL (1.5-4.2) Other Laboratory Tests 07/11/24 05:08 Brief Hx & Hospital Course: 43year-old female with a known history of chronic pain syndrome , chronic back pain initially admitted to the hospital with the abdominal pain eventually patient bowel intermittent. Patient's pain was managed. Abdominopelvic CT was done which shows no evidence of any acute pathology. Patient is being discharged in a stable condition with close follow up as outpatient PCP and blurred to ER physician consent. GI already cleared the patient to be discharged. Condition at Discharge: Stable Final Diagnosis/Problems List 1. Abdominal pain unspecified currently CT abdomen and pelvis does not show any acute pathology , suspect musculoskeletal pain 2. Chronic back pain 3. Chronic pain syndrome 4. Hepatic steatosis Discharge Disposition: Home SNF Discharge Will this Physician continue t: No Discharge Instruct/Medications Diet: Cardiac 2g Na,low cholest Activity: See Comment Activity comment: No driving, no bleeding on heavy machinery, no signing of legal documents while she is on narcotics. Follow Up/Referral: Follow up with PCP tomorrow as scheduled Follow up with the size painter found discharge Medications: Resume home medications Discharge Statement: "Patient was advised to return to the ER or call 911 if any headaches, dizziness, shortness of breath, chest pain, abdominal pain, bleeding, fevers, or worsening of medical condition. Patient was counseled about treatment plan, medications, possible side effects, patientverbalized understanding. All questions were answered to the best of my ability. This discharge took greater then 30 minutes in planning, reviewing documentation, counseling the patient, and discussing with other team members." ASSESSMENT ASSESSMENT Assessment -year-old female with a known history of chronic pain syndrome , chronic back pain initially admitted to the hospital with the abdominal pain found to have 1. Abdominal pain unspecified currently CT abdomen and pelvis does not show any acute pathology , suspect musculoskeletal pain 2. Chronic back pain 3. Chronic pain syndrome 4. Hepatic steatosis Date of Service: Jul 12, 2024 Billing Provider: MARY CORTEZ MD Common Visit Codes: NOT BILLABLE MARY CORTEZ MD Jul 12, 2024 16:08
--- NOTE | 2024-07-12 17:10 | DVHPN2 ---
Progress Note - Dictate Date Seen: Jul 12, 2024 Medical Necessity Reason Pt with a Central, PICC or Fol: No Subjective Patient continues to complain of abdominal pain and generalized pain Morphine is not helping her pain vital signs Vital Sign Date Time Temp Pulse Resp B/P (MAP) Pulse Ox O2 Delivery O2 Flow Rate FiO2 07/12/24 16:35 98.0 82 17 125/80 (95) 100 98.0 07/12/24 08:00 Room Air* 0 21 Total Intake and Output 07/11/24 07/11/24 07/12/24 15:00 23:00 07:00 Intake Total 950 ml 625 ml Output Total 900 ml 600 ml Balance 50 ml 25 ml medications Current Medications Medications Dose Ordered Sig/Rosaura Route Start Time Stop Time Status Last Admin Dose Admin Acetaminophen 650 mg Q6HPRN PRN PO 07/10/24 21:45 Hydralazine HCl 10 mg Q6HP PRN IV 07/11/24 00:30 Melatonin 5 mg ONCE@2200 PRN PO 07/11/24 02:15 07/11/24 22:55 5 MG Amitriptyline HCl 50 mg HS PO 07/11/24 22:00 07/11/24 21:55 50 MG Pantoprazole Sodium 40 mg BID@0600,1700 PO 07/11/24 17:00 07/12/24 05:57 40 MG Atenolol 50 mg HS PO 07/11/24 22:00 07/11/24 21:54 50 MG Gabapentin 800 mg HS PO 07/12/24 22:00 Cyclobenzaprine HCl 5 mg Q8HPRN PRN PO 07/11/24 16:45 07/11/24 22:44 5 MG Acetaminophen/ Hydrocodone Bitart 1 tab Q4HP PRN PO 07/11/24 19:30 07/12/24 10:32 1 TAB Morphine Sulfate 2 mg Q4HP PRN IV 07/11/24 19:30 07/12/24 13:20 2 MG Ondansetron HCl 4 mg Q4HPRN PRN IV 07/11/24 19:45 07/12/24 13:18 4 MG objective Well-developed well-nourished lady no acute distress morbidly obese HEENT pupils are reactive Neck is supple CV is S1-S2 regular rate and rhythm Respiratory diminished breath sounds bases GI positive bowel sounds soft nondistended nontender no guarding no rigidity Extremity no edema [employer] no motor deficit laboratory and microbiology Laboratory Tests 07/11/24 05:08 Test 07/11/24 05:08 Range/Units Serum Glucose 95 74-106 mg/dL Problems(with codes): (1) Chronic back pain (2) Hepatic steatosis (3) Morbid obesity (4) Fatty liver (5) Intractable abdominal pain Prognosis Plan I suspect her pain may be musculoskeletal in origin as the other workup appears to be negative Recommend PT requested patient to help her ambulate and get out of bed to chair Pain control Supportive care Protonix 40 mg p.o. daily Discharge planning is in progress Patient was given my contact information to follow up as an outpatient if she has ongoing symptoms to consider outpatient elective panendoscopy Once again thank you for allowing me to participate in the care of this patient Plan discussed with: Patient, Other (Nurse) HANNAH ACOSTA MD Jul 12, 2024 17:10
[2024-07-12] MEDS ORDERED: GABAPENTIN 400 MG CAP PO SCH (22:00)
== END 2024-07-12 19:40 | disposition home or self-care (01) | DRG 251 ==
LOC: ER 17:18 → OVERFLOW 21:42 → WEST WING 23:38
PROVIDERS: ADMIT Nurse Practitioner Family; ATTEND Nurse Practitioner Family
DX: R10.9 Unspecified abdominal pain (principal); Z68.43 Body mass index [BMI] 50.0-59.9, adult; K76.0 Fatty (change of) liver, not elsewhere classified; E11.9 Type 2 diabetes mellitus without complications; E66.01 Morbid (severe) obesity due to excess calories; G89.4 Chronic pain syndrome; I10 Essential (primary) hypertension; F32.A Depression, unspecified; F41.9 Anxiety disorder, unspecified; Z87.891 Personal history of nicotine dependence; Z79.891 Long term (current) use of opiate analgesic; Z79.899 Other long term (current) drug therapy
CPT/HCPCS: 36415; 74176; 76705; 80053; 80307; 81001; 83605; 83690; 84702; 85025; G0378; J2405; J2470